=== PATIENT | male | born 1950 | race Caucasian/White ===

== ENCOUNTER 2017-01-11 11:41 | Inpatient (IN) | payer OTHER ==
[2017-01-11] MEDS ORDERED: CEFAZOLIN 2 GM/DEXTROSE/100 ML BAG IV ONE (12:20)
[2017-01-11] MEDS ORDERED: LIDOCAINE 1% 2 ML INJ ONE (12:20)
[2017-01-11] MEDS ORDERED: fentaNYL 100 MCG/2 ML INJ ONE ×4 (12:51→15:27)
[2017-01-11] MEDS ORDERED: PROPOFOL 200 MG/20 ML VIAL ONE ×2 (12:52→15:32)
[2017-01-11] MEDS ORDERED: ROCURONIUM 50 MG/5 ML VIAL ONE ×2 (12:53→15:04)
[2017-01-11] MEDS ORDERED: clonIDINE 1 MG/10 ML VIAL EP ONE (12:54)
[2017-01-11] MEDS ORDERED: ROPIVACAINE HCL 150 MG/30 ML INJ ONE (12:54)
[2017-01-11] MEDS ORDERED: DEXAMETHASONE 4 MG/ML VIAL ONE (12:54)
[2017-01-11] MEDS ORDERED: MIDAZOLAM 2 MG/2 ML VIAL ONE (12:59)
[2017-01-11] MEDS ORDERED: CHLORHEXIDINE GLUC HIBICLENS 118 ML BTL TP ONE (13:00)
[2017-01-11] MEDS ORDERED: ceFAZolin 2 GM/DEXTROSE 100 ML IV ONE (13:00)
[2017-01-11] MEDS ORDERED: BUPIVACAINE 0.5% 30 ML SDV ONE (13:10)
[2017-01-11] MEDS ORDERED: epHEDrine SULFATE 10 MG/ML SYR ONE (13:54)
[2017-01-11] MEDS ORDERED: ROPIVACAINE 0.2% 1,100 MG in PUMP SET 1 EA NB SCH (14:30)
[2017-01-11] MEDS ORDERED: ONDANSETRON 4 MG/2 ML VIAL ONE (15:40)
[2017-01-11] MEDS ORDERED: NEOSTIGMINE METHYLSULFATE 5 MG/5 ML SYR ONE (15:46)
[2017-01-11] MEDS ORDERED: GLYCOPYRROLATE 0.2 MG/1 ML VIAL ONE (15:46)
[2017-01-11] MEDS ORDERED: ONDANSETRON 4 MG/2 ML VIAL IVP PRN (16:31)
[2017-01-11] MEDS ORDERED: ONDANSETRON DISINTEGRATING 4 MG TAB PO PRN (16:31)
[2017-01-11] MEDS ORDERED: PROMETHAZINE HCL 25 MG/ML INJ IVP PRN (16:31)
[2017-01-11] MEDS ORDERED: oxyCODONE IR 5 MG TAB PO PRN (16:31)
[2017-01-11] MEDS ORDERED: PROMETHAZINE HCL 25 MG SUPPR PR PRN (16:31)
[2017-01-11] MEDS ORDERED: diphenhydrAMINE 25 MG CAP PO PRN (16:31)
[2017-01-11] MEDS ORDERED: TEMAZEPAM 15 MG CAP PO PRN (16:31)
[2017-01-11] MEDS ORDERED: METOCLOPRAMIDE 10 MG/2 ML VIAL IVP PRN (16:31)
[2017-01-11] MEDS ORDERED: DIPHENOXYLATE/ATROPINE LOMOTIL 1 TAB PO PRN (16:31)
--- NOTE | 2017-01-11 16:35 | POSTOPPROG ---
Post Op Note Date of Operation: 01/11/17 Surgeon: Sachin Cordova Plug Shaper Hand: Ingrid Clancy Anesthesia: GET(General Endotracheal) Pre-op Diagnosis: right ankle djd Post-op Diagnosis: same Indication: above Procedure: R total ankle, Brostrum Inf/Abcess present in the surg proc area at time of surgery?: No EBL: 50-100
[2017-01-11] MEDS ORDERED: LR 1,000 ML IV SCH (17:00)
[2017-01-11] MEDS: CYCLOBENZAPRINE 10 MG TAB PO PRN (17:52)
[2017-01-11] MEDS: ACETAMINOPHEN 325 MG TAB PO SCH ×2 (17:52→23:30)
--- NOTE | 2017-01-11 18:14 | GOP ---
[f rep st] OPERATIVE REPORT DATE OF OPERATION: 01/11/2017 SURGEON: Sachin Cordova MD ACQUISITION MARKETING MANAGER: Ingrid Clancy P.A.-Kareem. ANESTHESIA: General with indwelling popliteal block and supplemental saphenous. PREOPERATIVE DIAGNOSIS: 1. Right ankle arthritis. 2. Right ankle instability. POSTOPERATIVE DIAGNOSIS: 1. Right ankle arthritis. 2. Right ankle instability. PROCEDURE PERFORMED: 1. Right total ankle replacement. 2. Right ankle Brostrom procedure. IMPLANTS: Alejandra Tolaris total ankle with 2 tibia, and this XT 2 tibia to XT talus 10 mm poly, as we ll as 2.9 Arthrex PushLock anchor. FINDINGS: SPECIMENS: None. CONDITION: Stable. ESTIMATED BLOOD LOSS: 50 mL. 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 We discussed risks and benefits of fusion versus ankle replacement. We also discussed risks of need for further surgery, such as Brostrom, wound infection, wound complications, infection, need for fu mary down the road, loosening/failure of hardware, prominence, and elects to proceed. Informed cons ent was obtained. All questions were answered. He was marked preoperatively. DESCRIPTION OF PROCEDURE: He was taken to the operative suite. A block was administered per Anesth esia and anesthesia was administered. He was positioned, sterilely prepped and draped in the normal fashion. A time-out was performed, verifying the site, side, and location, and there was agreement by the team. An anterior approach was performed to the ankle, incising the skin to protect the soft tissues, incl uding the SP nerve using the interval between the tibia and the EHL, and then protecting the neurova scular bundle deep and exposed the ankle. His ankle was grossly arthritic. I removed osteophytes w ith a rongeur and a chisel. He had gross laxity of the ankle as well, both anterior drawer and varu s. I placed a pin in the proximal tibia for the guide placement through a small skin incision. I then put the guide on this, set the guide in position and checked the length, varus/valgus rotation. Thi s was pinned in place in the medial hole. I used fluoroscopy to examine this. I placed a talar guide and lined this up with rotation of the 2nd and 3rd ray. I then pinned this t alar guide into place. I picked a #2 tibia. I removed the talar guide, checked the hold on this an d adjusted my medial-lateral width. We placed a talar guide and checked the skin fluoroscopically. We pinned the talar guide and cut the talus with a flap top cut. I removed this. I then placed a 2 tibia guide. I placed pins in the gutters. Cut the distal tibia and then the gutter cuts were mad e. This was removed. We removed all the bone and removed any loose pieces. I then used trial impl ants. I selected a 10 poly. I was able to position the knee and cycle the ankle to get the rotatio n. I corrected and moved the talus into the correct position. This helped his anterior subsidence that he had before surgery. I pinned the talus into place. I then pinned the tibia and then did fi bettie the tibial keel preparation to the holes in the guide. I then removed this talar component with the tibia pinned. I made the hernandez cut and then the notch c uts as well. I removed the tibia guide. I removed the extra bone and then 2 notch cuts. I thoroughly irrigated this. I selected the final implants. The tibia was prepared on the back tab le with the poly on it. I impacted the talus and got this down to bone. I inserted the tibia, poun ded this into place and then bone grafted over this. I checked this fluoroscopically and liked the position of it in all directions. He was stable to anterior drawer after the surgery. He did still have some varus laxity, though thi s was better than before and I made the decision to perform a Brostrom procedure of the CFL. I made an incision over the distal fibula. I dissected the lateral ankle ligaments of the CFL. I p rotected the peroneals. I used a Krackow stitch in these and then drilled a hole in the fibula. I used a 2.9 PushLock to bring this to the fibula. This tightened up the CFL widely and he did not ga p open nearly as much, and he had a normal amount of play in the ankle. He had a good range of annabelle on when we were done. Final x-rays were taken. He was thoroughly irrigated. Wounds were closed with #1 Vicryl, 0 Vicryl, 2-0 Vicryl, 3-0 Monocryl, 3-0 Quill in the main ankle wound, and Dermabond. He was placed in a splint and taken to the PACU in a stable condition. COMPLICATIONS: None. DRAINS: None. /[id number]/MODL
[2017-01-11] MEDS: FAMOTIDINE 20 MG TAB PO SCH (19:37)
[2017-01-11] MEDS: ceFAZolin 2 GM in D5W 100 ML IV SCH (21:57)
[2017-01-11] MEDS ORDERED: ceFAZolin 2 GM/DEXTROSE 100 ML IV SCH (22:00)
[2017-01-12] MEDS: CYCLOBENZAPRINE 10 MG TAB PO PRN (04:00)
[2017-01-12 04:10] VITALS: O2SAT 94
[2017-01-12 04:56] LABS: HEMATOCRIT 43.1 % (40.0-51.0); HEMOGLOBIN 14.6 g/dL (13.7-17.5)
[2017-01-12] MEDS: ceFAZolin 2 GM in D5W 100 ML IV SCH (06:04)
[2017-01-12] MEDS: ACETAMINOPHEN 325 MG TAB PO SCH (06:05)
[2017-01-12] MEDS: FAMOTIDINE 20 MG TAB PO SCH (08:07)
[2017-01-12] MEDS ORDERED: ASPIRIN 325 MG TAB PO SCH (09:00)
[2017-01-12] MEDS ORDERED: FLUTICASONE/SALMETER 500/50MCG DISKUS IH SCH (09:00)
[2017-01-12] MEDS ORDERED: FINASTERIDE 5 MG TAB PO SCH (09:00)
--- NOTE | 2017-01-12 10:56 | GDS ---
[f rep st] DISCHARGE SUMMARY REASON FOR HOSPITALIZATION: Right total ankle. HISTORY OF PRESENT ILLNESS: This is a 66-year-old male who was admitted after right total ankle Bro kierna procedure. He did well with this hospitalization. No complications or issues. CONSULTING PHYSICIANS: None. PROCEDURES: Right total ankle and right Brostrom procedure. CONDITION ON DISCHARGE: Stable. DISPOSITION: He was sent home with pain medicines of oxycodone and Ultram. He was sent home with a block and will elevate and ice this. He was given instructions to take one 325 aspirin once a day for 6 weeks. He will call or come back to the hospital if he has any chest pain, shortness of breat h, wound problems, or other concerns. I will see him in 1 week for removal of splint. He is nonwei ghtbearing, eating a regular diet. /[id number]/MODL
[2017-01-12 11:46] VITALS: BP 99/65; PULSE 44; RESP 16; TEMP 98.9
== END 2017-01-12 12:22 | disposition home or self-care (01) | DRG 470 ==
LOC: OBSVTOIN 11:41 → F3N 11:41
PROVIDERS: ADMIT Orthopaedic Surgery; ATTEND Orthopaedic Surgery
PROC: 0MQQ0ZZ Repair Right Ankle Bursa and Ligament, Open Approach (ICD-10-PCS; principal; 2017-01-11 13:15)
PROC: 0SRF0JZ Replacement of Right Ankle Joint with Synthetic Substitute, Open Approach (ICD-10-PCS; principal; 2017-01-11 13:15)
DX: M19.071 Primary osteoarthritis, right ankle and foot (principal)
CPT/HCPCS: 97116-GP; 97161-GP; 97165-GO; C1713; G8978-GP-CI; G8979-GP-CI; G8980-GP-CI; G8987-GO-CI; G8988-GO-CI; G8989-GO-CI; J0690; J0735; J1100; J2250; J2405; J2550; J2704; J2710; J2795; J3010

== ENCOUNTER → 2017-09-27 | Outpatient (CLI) | payer OTHER ==
[~2017-09-27] MED LIST: IOPAMIDOL (ISOVUE-300) 100 ML BTL ONE
== END ==
LOC: CIMAGING 09:29
PROVIDERS: ATTEND Internal Medicine
DX: N20.0 Calculus of kidney (principal); N21.0 Calculus in bladder; N40.0 Benign prostatic hyperplasia without lower urinary tract symptoms
CPT/HCPCS: 74178; Q9967

== ENCOUNTER → 2017-10-12 | Outpatient (CLI) | payer OTHER | LOC: FIMAGING 13:13 | PROVIDERS: ATTEND Specialist | DX: R31.9 Hematuria, unspecified (principal) ==

== ENCOUNTER → 2017-10-27 | Outpatient (CLI) | payer OTHER | LOC: CIMAGING 11:15 | PROVIDERS: ATTEND Specialist | DX: N20.0 Calculus of kidney (principal); N40.0 Benign prostatic hyperplasia without lower urinary tract symptoms | CPT/HCPCS: 74176-PO ==

== ENCOUNTER 2018-01-12 05:52 | Observation (INO) | payer OTHER ==
[2018-01-12] MEDS ORDERED: levOFLOXACIN 500 MG/DEXTROSE 100 ML IV ONE (05:57)
[2018-01-12] MEDS ORDERED: LIDOCAINE 1% 2 ML INJ ID PRN (05:58)
[2018-01-12] MEDS ORDERED: LR 1,000 ML IV ONE (05:58)
--- NOTE | 2018-01-12 07:08 | PDANEPAE ---
ANE History of Present Illness BPH ANE Past Medical History - Cardiovascular History Hx Hypertension: No Hx Arrhythmias: No Hx Chest Pain: No Hx Coronary Artery / Peripheral Vascular Disease: No Hx CHF / Valvular Disease: No Hx Palpitations: No - Pulmonary History Hx COPD: No Hx Asthma/Reactive Airway Disease: Yes Hx Recent Upper Respiratory Infection: No Hx Oxygen in Use at Home: No Hx Sleep Apnea: No Sleep Apnea Screening Result - Last Documented: Negative Pulmonary History Comment: INHALER - ENVIRIONMENTAL TRIGGERS - Neurologic History Hx Cerebrovascular Accident: No Hx Seizures: No Hx Dementia: No - Endocrine History Hx Diabetes: No - Renal History Hx Renal Disorders: No Renal History Comment: PROSTATE - Liver History Hx Hepatic Disorders: No - Neurological & Psychiatric Hx Hx Neurological and Psychiatric Disorders: No - Cancer History Hx Cancer: No - Congenital Disorder History Hx Congenital Disorders: No - GI History Hx Gastrointestinal Disorders: No - Other Health History Other Health History: NEG - Chronic Pain History Chronic Pain: Yes (KATHIE SHOULDERS) - Surgical History Prior Surgeries: L BILLY. shoulder - SCOPE. R ANKLE REPLACEMENT. LOWER BACK SURG ANE Review of Systems Review of Systems: - Exercise capacity METS (RN): 6 METS ANE Patient History - Allergies Allergies/Adverse Reactions: No Known Allergies Allergy (Verified 03/29/13 18:41) - Home Medications Home Medications: RX: Finasteride [Proscar 5 MG (*)] 5 mg PO DAILY 06/12/13 [Last Taken 01/11/18 06:00] RX: Fluticasone/Salmeter 500/50Mcg [Advair 500/50 (*)] 1 puffs IH DAILY [Last Taken 01/11/17 07:30] Flomax 12/19/17 [Last Taken 01/11/18 20:00] Herbals/Supplements -Info Only 12/19/17 [Last Taken 01/05/18] - NPO status NPO Since - Liquids (Date): 01/11/18 NPO Since - Liquids (Time): 21:00 NPO Since - Solids (Date): 01/11/18 NPO Since - Solids (Time): 18:00 - Smoking Hx Smoking Status: Never smoked - Family Anes Hx Family Hx Anesthesia Complications: NEG ANE Labs/Vital Signs - Vital Signs Blood Pressure: 128/89 Heart Rate: 52 Respiratory Rate: 18 O2 Sat (%): 93 Height: 182.88 cm Weight: 65.771 kg ANE Physical Exam - Airway Neck exam: FROM Mallampati Score: Class 1 Mouth exam: normal dental/mouth exam - Pulmonary Pulmonary: no respiratory distress - Cardiovascular Cardiovascular: regular rate and rhythym - ASA Status ASA Status: II ANE Anesthesia Plan Anesthesia Plan: GA w LMA
[2018-01-12] MEDS ORDERED: PROPOFOL/EMULSION 500 MG/50 ML BOTTLE IV ONE (07:15)
[2018-01-12] MEDS ORDERED: fentaNYL 100 MCG/2 ML INJ ONE ×2 (07:15)
--- NOTE | 2018-01-12 07:30 | PDHPUP ---
History & Physical Update H&P update statement: This history and physical update is based on an assessment of the patient which was completed after admission or registration (within 24 hours), but prior to the surgery/procedure. H&P update: changes noted (recurrent gross hematuria last week that has since resolved)
[2018-01-12] MEDS ORDERED: ONDANSETRON 4 MG/2 ML VIAL ONE (07:55)
[2018-01-12] MEDS ORDERED: ePHEDrine SULFATE 25 MG/5 ML SYR ONE (07:55)
[2018-01-12] MEDS ORDERED: DEXAMETHASONE 4 MG/ML VIAL ONE (07:55)
[2018-01-12] MEDS ORDERED: HYDROmorphONE/DILAUDID 2 MG/ML INJ ONE (08:27)
[2018-01-12] MEDS ORDERED: ONDANSETRON 4 MG/2 ML VIAL IVP PRN ×2 (09:07→09:57)
[2018-01-12] MEDS ORDERED: NALOXONE HCL 0.4 MG/ML INJ IVP PRN (09:07)
[2018-01-12] MEDS ORDERED: fentaNYL 100 MCG/2 ML INJ IVP PRN (09:07)
[2018-01-12] MEDS ORDERED: HYDROCODONE/APAP 5/325 TAB PO PRN ×2 (09:07→09:57)
[2018-01-12] MEDS ORDERED: HYDROmorphONE/DILAUDID 2 MG/ML INJ IVP PRN (09:07)
[2018-01-12] MEDS ORDERED: PROMETHAZINE HCL 25 MG/ML INJ IVP PRN ×2 (09:07→09:57)
--- NOTE | 2018-01-12 09:35 | POSTANESTH ---
Post Anesthetic Evaluation Cardiovascular Status: Normal, Stable Respiratory Status: Normal, Stable Level of Consciousness/Mental Status: Can Participate in Eval Pain Control: Adequate, Prn Tx Ordered Nausea/Vomiting Control: Adequate, Prn Tx Ordered Complications Possibly Related to Anesthesia: None Noted
--- NOTE | 2018-01-12 09:45 | POSTOPPROG ---
Post Op Note Date of Operation: 01/12/18 Surgeon: Terrance Mansfield (# [id number]) Anesthesia: LMA Pre-op Diagnosis: BPH w/ obstruction Post-op Diagnosis: BPH w/ obstruction Procedure: TURP Findings: See op note Inf/Abcess present in the surg proc area at time of surgery?: No EBL: 50-100 (50 cc) Complications: None Specimen(s): Prostate adenoma
[2018-01-12] MEDS ORDERED: LIDOCAINE 2% JELLY 5 ML TUBE TP PRN (09:57)
[2018-01-12] MEDS ORDERED: OPIUM/BELLADONNA ALKALO SUPP PR PRN (09:57)
--- NOTE | 2018-01-12 10:30 | GOP ---
[f rep st] OPERATIVE REPORT DATE OF OPERATION: 01/12/2018 SURGEON: Terrance Mansfield MD ANESTHESIA: Laryngeal mask. PREOPERATIVE DIAGNOSIS: Severe benign prostatic hypertrophy with urinary obstruction and intermittent gross hematuria. POSTOPERATIVE DIAGNOSIS: Severe benign prostatic hypertrophy with urinary obstruction and intermittent gross hematuria. PROCEDURE PERFORMED: Transurethral resection of prostate. FINDINGS: Severe BPH with intravesical extension circumferentially. SPECIMENS: Prostate adenoma. ESTIMATED BLOOD LOSS: Approximately 50 cc. INDICATIONS: This gentleman has had recent issues with intermittent gross painless hematuria that is presumed to be due to severe BPH. The patient also has significant obstructive urinary symptoms. He presents for operative management as his condition has been refractory to medical therapy. The indications for the procedures, as well as potential risks and complications were discussed with the patient preoperatively. He appeared to understand, his questions were answered, and he wished to proceed. Written informed surgical consent was thereafter obtained. DESCRIPTION OF PROCEDURE: The patient was brought to the operating room and administered laryngeal mask anesthesia. He was carefully placed in the dorsal lithotomy position on the cystoscopic table. The genital area was sterilely prepped with Betadine scrub and paint then draped in usual sterile fashion. Cystoscopy was performed with the 30-degree and 70 degrees through a 25-Pu[place]ican sheath. Anterior urethra revealed no abnormalities. Posterior urethra revealed severe circumferential BPH with intravesical extension of prostate adenoma noted circumferentially. The intravesical extension of tissue initially obliterated visualization of the trigone. The bladder was moderately to heavily trabeculated. Complete cystoscopy had been previously performed in the office and was not repeated here today. I then inserted the 28-[place] resectoscopic sheath with obturator, followed by the laser resectoscope and a standard resecting loop. Using the bipolar generator and continuous flow with normal saline, I began to resect the prostate starting with the intravesical portion of the median lobe. I then resected the lateral lobes, again starting with the intravesical portion and resecting back toward the verumontanum. I resected deep enough to where prostate capsular fibers were seen circumferentially. Along the midportion of the prostate anteriorly, I did resect until prostatic fat was noted. This was a little deeper than I would have preferred, but I was not concerned about any ramifications from this as I would expect the capsule to heal at this location unremarkably. All the prostate tissue was evacuated from the bladder using an Ellik evacuator. It should also be mentioned that after resecting the median lobe, I was able to visualize the location of the ureteral orifices. Their location was kept in mind during the remainder of the resection. After removing the tissue from the bladder, I then inserted the button electrode and fulgurated the cut surface of the prostate circumferentially for hemostatic purposes. At the conclusion of this portion of procedure, the prostatic fossa was widely patent and hemostasis was relatively well maintained. The ureteral orifices were preserved and no resection had taken place distal to the verumontanum. Once I felt sure that all the tissue had been removed from the bladder, the resectoscopic instruments were removed and a 24-[place]ican 3-way Duong catheter inserted with the use of a catheter guide. Approximately 50-55 cc of sterile water was placed in the balloon. The catheter was connected to continuous irrigation. The urine return was initially somewhat dark bloody. My presumption was that this bleeding was probably coming from the exposed venous vessels along the anterior aspect as noted previously. I therefore placed the catheter on traction using a 4 x 4 gauze. After doing so, the urine return was almost completely clear to light pink. The catheter irrigated manually without difficulty. The catheter was connected to bag drainage. The patient was then awakened, transferred to his bed, then taken to the recovery room. He tolerated the procedure well overall. COMPLICATIONS: None. DISPOSITION: He was transferred to the recovery room in stable condition. He will be admitted for continuous bladder irrigation overnight. /[id number]/MODL MTDD
[2018-01-12] MEDS: D5W 1/2 NS 1,000 ML IV SCH ×2 (15:15→23:41)
[2018-01-12] MEDS ORDERED: ZOLPIDEM TARTRATE 5 MG TAB PO PRN (16:41)
[2018-01-13] MEDS ORDERED: FLUTICASONE/SALMETER 500/50MCG DISKUS IH SCH (09:00)
[2018-01-13] MEDS: D5W 1/2 NS 1,000 ML IV SCH (09:33)
[2018-01-13 11:39] VITALS: BP 96/63
--- NOTE | 2018-01-13 13:31 | SOAPPROG ---
SOAP Progress Note Assessment/Plan: Assessment: s/p TURP yesterday - doing well. Plan: 1. Discharge w/ Duong. (d/c summ. # [id number]) Subjective: No complaints. Objective: Vital Signs Temp Pulse Resp BP Pulse Ox 36.4 C 57 L 16 96/63 L 90 L 01/13/18 11:34 01/13/18 11:34 01/13/18 11:34 01/13/18 11:34 01/13/18 11:34 Laboratory Results 01/13/18 04:34 01/13/18 04:34 01/12/18 01/13/18 01/14/18 05:59 05:59 05:59 Intake Total 2961 Output Total 2500 Balance 461 Physical Exam - Physical Exam General Appearance: WD/WN, alert, no apparent distress Male Genitalia: other (urine blood-tinged in Duong (looks like old blood)) Skin: warm/dry Extremities: normal inspection Neuro/Psych: alert, normal mood/affect, oriented x 3 ICD10 Worksheet Patient Problems: Problems Problem Status Onset Primary osteoarthritis of left hip Acute
--- NOTE | 2018-01-13 17:17 | GDS ---
[f rep st] DISCHARGE SUMMARY ADMITTING DIAGNOSES: Benign prostatic hypertrophy with urinary obstruction and a history of recurren t gross hematuria. DISCHARGE DIAGNOSES: Benign prostatic hypertrophy with urinary obstruction and a history of recurren t gross hematuria. PROCEDURES: Transurethral prostate resection on 01/12/2018. HOSPITAL COURSE: Refer to the operative report for details regarding the procedure. Postoperatively, the patient did well. He was maintained on continuous bladder irrigation the night of surgery. This was stopped the following morning. The urine was blood tinged, but free flowing an d clear of clots. The patient did very well otherwise postoperatively. He was deemed ready for disc harge on postoperative day 1 with his Duong catheter. He has been given instructions to remove the F oley catheter on Tuesday following discharge. Activity restriction instructions have been discussed. Patient will continue with his pre-admission medications. We will check on his voiding status afternoon following Duong removal. He will otherwise follow up in my office in approximately [address] [place] [address]. /[id number]/MODL
== END 2018-01-13 15:39 | disposition home or self-care (01) ==
LOC: FSGY 05:52 → F1N 09:53
PROVIDERS: ADMIT Specialist; ATTEND Specialist
PROC: 0VB08ZZ Excision of Prostate, Via Natural or Artificial Opening Endoscopic (ICD-10-PCS; principal; 2018-01-12 07:15)
DX: N40.1 Benign prostatic hyperplasia with lower urinary tract symptoms (principal); N13.8 Other obstructive and reflux uropathy; Z96.642 Presence of left artificial hip joint; Z96.661 Presence of right artificial ankle joint
CPT/HCPCS: 52601; 88305; J1100; J1170; J1956; J2405; J2704; J3010